=== PATIENT | female | born 2000 | race Caucasian/White ===

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

== ENCOUNTER 2022-06-25 23:24 | Outpatient (CLI) | payer MEDICAID ==
[2022-06-26 00:06] VITALS: BP 99/55
[2022-06-26] MEDS ORDERED: ACETAMINOPHEN 325 MG TAB ONE (03:56)
== END 2022-06-26 06:30 | disposition home or self-care (01) ==
LOC: TRG 23:24 → APU 23:25 → TRG 06-26 06:30
PROVIDERS: ATTEND Student in an Organized Health Care Education/Training Program
DX: O26.892 Other specified pregnancy related conditions, second trimester (principal); R10.9 Unspecified abdominal pain; Z3A.23 23 weeks gestation of pregnancy
CPT/HCPCS: 59025

== ENCOUNTER 2022-06-26 02:39 | Outpatient (CLI) | payer MEDICAID ==
[2022-06-26 02:52] VITALS: BP 111/52
[2022-06-26] MEDS ORDERED: ACETAMINOPHEN 325 MG TAB PO ONE (03:41)
--- NOTE | 2022-06-26 04:37 | Ultrasound Report ---
US OB >= 14 weeks Fetus INDICATION / CLINICAL INFORMATION: Abdominal pain, spottting COMPARISON: None available. TECHNIQUE: Using a transcutaneous probe, multiple grayscale, color Doppler, and spectral Doppler imag es of the uterus and fetus were captured and stored. FINDINGS: Single cephalic fetus with heart rate 149 bpm. Amniotic fluid index within normal limits, 18.9 cm. Anterior grade 1 low-lying placenta. Maternal cervix measures 3.2 cm. ANATOMY: organs (including the bladder, stomach, kidneys, heart, umbilical cord, diaphragm, cord inserti on, spine and intracranial structures) are visualized and show no significant abnormality with the fo llowing exception(s): Limited visibility of the spine secondary to position. Mild asymmetry of the supratentorial ventricles. The right lateral ventricle is minimally larger than left. Biparietal Diameter = 5.8 cm = 23, 6 weeks, days Head Circumference = 21.3 cm = 23, 2 weeks, days Abdominal Circumference = 20.6 cm = 25, 1 weeks, days Femur Length = 4.7 cm = 25, 5 weeks, days Average Ultrasound Age (AUA) = 23, 5 weeks, days. EDC 10/18/2022. Clinical history gestational age is 24 weeks 4 days. Estimated weight = 772 g.. IMPRESSION: 1. Single living fetus as detailed. 2. The right lateral ventricle may be minimally enlarged. Targeted ultrasound follow-up or MRI could be considered for further characterization. Signer Name: Cristhian Hutchinson II, MD Signed: 06/26/2022 4:33 AM Workstation Name: [id number]
[2022-06-26 15:37] LABS: Bacteria,Urine 1+ /HPF (Negative); Color,Urine Yellow (Yellow); Mucus,Urine FEW /HPF
== END 2022-06-26 06:30 | disposition home or self-care (01) ==
LOC: TRG 02:39
PROVIDERS: ATTEND Student in an Organized Health Care Education/Training Program
DX: O26.852 Spotting complicating pregnancy, second trimester (principal); O26.892 Other specified pregnancy related conditions, second trimester; R10.9 Unspecified abdominal pain; Z3A.23 23 weeks gestation of pregnancy
CPT/HCPCS: 59025; 76805; 81001; 87086